=== PATIENT | male | born 1965 | race Caucasian/White ===

== ENCOUNTER 2017-09-16 09:46 | Emergency (ER) | payer OTHER ==
[2017-09-16 10:20] VITALS: BP 148/90
== END 2017-09-16 11:17 | disposition left against medical advice (07) ==
DX: Z53.21 Procedure and treatment not carried out due to patient leaving prior to being seen by health care provider (principal)

== ENCOUNTER 2017-12-21 10:24 | Emergency (ER) | payer OTHER ==
[2017-12-21 10:31] VITALS: BP 140/81
--- NOTE | 2017-12-21 11:12 | EDPHY ---
H & P Time Seen by Provider: 12/21/17 10:52 HPI/ROS: CHIEF COMPLAINT: Right arm injury HISTORY OF PRESENT ILLNESS: 52-year-old male presents to the emergency department with injury to his right arm. 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 Incident happened just prior to arrival. He is right-hand dominant. Complains of isolated pain to the right mid arm. ROS: Denies numbness or tingling in his fingers, feelings of weakness in his right upper extremity. Denies pain in the right wrist or elbow. Past Medical/Surgical History: Hypertension, diabetes Social History: Single, lives in [place] Smoking Status: Never smoked Physical Exam: On examination the patient has swelling noted to the right mid biceps especially when he flexes his right elbow and has range of motion against resistance. No palpable bony tenderness. He has mild pain with palpation over the antecubital fossa of the right elbow. No palpable bony tenderness. Normal sensation to light touch with normal 2 point discrimination. Strong radial pulse at the right wrist. 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 ED Course/Re-evaluation: 52-year-old male presents to the emergency department with right biceps pain. I was concerned that he had a possible biceps tendon rupture. He was placed in a sling and given orthopedic referral. - Depart Disposition: Home, Routine, Self-Care Clinical Impression: Rupture of right biceps tendon Qualifiers: Encounter type: initial encounter Qualified Code(s): S46.211A - Strain of muscle, fascia and tendon of other parts of biceps, right arm, initial encounter Condition: Fair Instructions: Tendon Rupture (ED) Additional Instructions: Sling for comfort and support. Ibuprofen 600mg every 8 hours for pain as directed. Follow up with orthopedic surgeon next week to recheck. Work Related Injury: Date of Injury (if different from Date of Service): 12/21/2017 Your work restrictions, if any, last only until the next business day. Formal evaluation for work restrictions beyond one day must be arranged through your employer's workman's compensation provider. Restrictions are noted below: Return to limited work on your next scheduled shift. Left hand work only Referrals: Antony Keys MD [Medical Doctor] - 2-3 days without fail (Orthopedic surgeon on-call) Work Comp Ref/Restrictions [Outside] - As per Instructions
== END 2017-12-21 11:25 | disposition home or self-care (01) ==
DX: S46.211A Strain of muscle, fascia and tendon of other parts of biceps, right arm, initial encounter (principal); I10 Essential (primary) hypertension; E11.9 Type 2 diabetes mellitus without complications; Z79.4 Long term (current) use of insulin; X50.9XXA Other and unspecified overexertion or strenuous movements or postures, initial encounter; Y99.0 Civilian activity done for income or pay; Y93.89 Activity, other specified
CPT/HCPCS: A4565

== ENCOUNTER 2018-06-18 09:21 | Observation (INO) | payer OTHER ==
--- NOTE | 2018-06-18 09:27 | EDPHY ---
H & P Stated Complaint: chest heavyness/cough/n/v Time Seen by Provider: 06/18/18 09:27 HPI/ROS: HPI: This is a 53-year-old male who presents with Chief Complaint: Heavy chest", shortness of breath, nausea, vomiting Location: Chest Quality:"Heavy" Duration: Since April Signs and Symptoms: no fever, + nausea, + vomiting, no diarrhea, no urinary symptoms, + shortness of breath, no wheezing, + cough, no sore throat, no neck stiffness, no joint pain, no swollen glands, no ear pain, no rash Timing: Worse this morning prior to arrival Severity: Moderate Context: Patient has a history of hypertension, diabetes mellitus presents with sudden onset of nausea while brushing his teeth this morning. He then went [facility] and got a bagel and was sitting at the stoplight after picking up is breakfast when he began to feel nauseous and vomited x1 he reports that he has had a cough since April and his PCP is concerned that he may have congestive heart failure as he has lower extremity bilaterally edema worse at the end of the day for the last several weeks. He is scheduled to see Cardiology, Dr. Delarosa, this week. He is adopted and does not know his family history. Patient reports that he has his intermittent orthopnea and cough that is worse when lying flat. Patient reports he received his influenza vaccine this year. He denies any upper respiratory symptoms. Patient reports that his cough is nonproductive in nature. Denies fever. He currently complains of chest heaviness that is nonradiating in nature. He denies diaphoresis. He still complains of nausea. Modifying Factors: None Comment: ROS: A comprehensive 10 system review of systems is otherwise negative aside from elements mentioned in the history of present illness. MEDICAL/SURGICAL/SOCIAL HISTORY: Medical history: Hypertension, diabetes mellitus Surgical history: Denies Social history: Family history noncontributory. CONSTITUTIONAL: Mild distress, overweight, middle-aged white male, awake and alert, no obvious distress HEENT: Atraumatic and normocephalic, PERRL, EOMI. Nares patent; no rhinorrhea; no nasal mucosal edema. Tympanic membranes clear. Oropharynx clear, no exudate and moist pink mucosa. Airway patent. No lymphadenopathy. No meningismus. Cardiovascular: Normal S1/S2, regular rate, regular rhythm, without murmur rub or gallop. PULMONARY/CHEST: Symmetrical and nontender. Clear to auscultation bilaterally. Good air movement. No accessory muscle usage. ABDOMEN: Soft, nondistended, nontender, no rebound, no guarding, no peritoneal signs, no masses or organomegaly. No CVAT. EXTREMITIES: 2/2 pulses, strength 5/5, no deformities, no clubbing, no cyanosis or edema. NEUROLOGICAL: no focal neuro deficits. GCS 15. SKIN: Warm and dry, no erythema. no rash. Good capillary refill. Source: Patient Exam Limitations: No limitations - Personal History Current Tetanus Diphtheria and Acellular Pertussis (TDAP): Yes - Medical/Surgical History Hx Asthma: No Hx Chronic Respiratory Disease: No Hx Diabetes: Yes Hx Cardiac Disease: No Hx Renal Disease: No Hx Cirrhosis: No Hx Alcoholism: No Hx HIV/AIDS: No Hx Splenectomy or Spleen Trauma: No Other PMH: htn/diabetic - Social History Smoking Status: Never smoked Constitutional: Initial Vital Signs Temperature (C) 36.6 C 06/18/18 09:24 Heart Rate 93 06/18/18 09:24 Respiratory Rate 18 06/18/18 09:24 Blood Pressure 190/100 H 06/18/18 09:24 O2 Sat (%) 95 06/18/18 09:24 O2 Delivery Mode Room Air Allergies/Adverse Reactions: codeine Allergy (Verified 06/18/18 09:22) Home Medications: Medication Instructions Recorded Amlodipine Besylate 09/16/17 Humalog 09/16/17 Lisinopril-Hctz 10-12.5 mg Tab 09/16/17 Basaglar Kwikpen U-100 12/21/17 Adderall 10 MG (*) 06/18/18 Aspirin 81mg (*) 06/18/18 Atorvastatin Calcium [Lipitor 40 40 mg PO DAILY 06/18/18 mg (*)] Multivitamins [Multivitamin (*)] 1 each PO DAILY 06/18/18 Sertraline HCl [Zoloft 50mg (*)] 50 mg PO DAILY 06/18/18 Terbinafine HCl [LamISIL 250 MG 250 mg PO DAILY 06/18/18 (*)] Tessalon Pearles 06/18/18 metFORMIN SR [Glucophage XR 500 mg 1,000 mg PO BID 06/18/18 (*)] Medical Decision Making - Diagnostics EKG Interpretation: 12 lead EKG: Indication: Chest pain Rhythm: Normal sinus rhythm, rate of 89 beats per minute Mobile: Normal Intervals: Normal QRS: Normal ST segments: Nonspecific changes INTERPRETATION: No acute ischemic changes The 12 lead EKG was interpreted by myself and with attending. Imaging Results: Imaging Impressions Chest X-Ray 06/18/18 09:32 Impression: Mild hypoventilatory features with mild perihilar bronchitis, borderline-cardiac silhouette enlargement, and no focal infiltrate. ED Course/Re-evaluation: Vital signs reviewed and show elevated blood pressure upon arrival. Placed on property assessment monitor. 10 min later blood pressure 140/90 with a heart rate of 90 and telemetry shows normal sinus rhythm EKG, chest x-ray, IV access, laboratory studies ordered Patient given IV Zofran 4 mg and aspirin 0945: EKG my read shows normal sinus rhythm with a rate of 89 beats per minute with nonspecific ST changes but no acute ischemic changes. Reviewed with attending. 0946: HEART score= moderate risk I reviewed the share decision making instrument with the patient, including risk of MACE, and the patient (and family) that are in agreement with the chosen disposition. 0949: Notified by tech that troponin 0.01 1000: Chest x-ray my read shows no opacity, no pulmonary congestion, no effusion, + mild cardiomegaly 0110: Labs reviewed. No signs of leukocytosis/anemia/platelet dysfunction/MARIELA/ elevated LFTs/electrolyte imbalance/pancreatitis/ACS/CHF. ED decision to consult for admission for chest pain rule out due to moderate heart score, need for property assessment monitor and serial troponin. Spoke with Alyson who kindly agrees to admit patient under Dr. Almonte to PCU. This patient was seen under the supervision of my secondary supervising physician. I evaluated care for this patient with my attending. Discussed this patient with Dr. Devries who did see the patient. Differential Diagnosis: Chest pain including but not limited to myocardial ischemia, pulmonary embolus, chest wall pain, pleural inflammation and pulmonary infectious causes. - Data Points Laboratory Results: Laboratory Results 06/18/18 09:32 06/18/18 09:32 06/18/18 06/18/18 06/18/18 09:35 09:32 09:32 WBC RBC Hgb Hct MCV MCH MCHC RDW Plt Count MPV Neut % (Auto) Lymph % (Auto) Glenn % (Auto) Eos % (Auto) Baso % (Auto) Nucleat RBC Rel Count Absolute Neuts (auto) Absolute Lymphs (auto) Absolute Monos (auto) Absolute Eos (auto) Absolute Basos (auto) Absolute Nucleated RBC Immature Gran % Immature Gran # PT 12.9 SEC SEC (12.0-15.0) INR 0.95 (0.83-1.16) APTT 31.3 SEC SEC (23.0-38.0) Sodium 134 mEq/L L mEq/L (135-145) Potassium 4.2 mEq/L mEq/L (3.5-5.2) Chloride 98 mEq/L mEq/L (97-110) Carbon Dioxide 26 mEq/l mEq/l (22-31) Anion Gap 10 mEq/L mEq/L (6-14) BUN 15 mg/dL mg/dL (7-23) Creatinine 0.9 mg/dL mg/dL (0.7-1.3) Estimated GFR > 60 Glucose 136 mg/dL H mg/dL (70-100) Calcium 9.5 mg/dL mg/dL (8.5-10.4) Total Bilirubin 0.9 mg/dL mg/dL (0.1-1.4) Conjugated Bilirubin 0.4 mg/dL mg/dL (0.0-0.5) Unconjugated Bilirubin 0.5 mg/dL mg/dL (0.0-1.1) AST 33 IU/L IU/L (17-59) ALT 34 IU/L IU/L (21-72) Alkaline Phosphatase 90 IU/L IU/L (38-126) POC Troponin I 0.01 ng/mL ng/mL (0.00-0.08) NT-Pro-B Natriuret Pep 40 pg/mL pg/mL (0-125) Total Protein 7.7 g/dL g/dL (6.3-8.2) Albumin 4.3 g/dL g/dL (3.5-5.0) Lipase 48 IU/L IU/L (23-300) 06/18/18 09:32 WBC 8.76 10^3/uL 10^3/uL (3.80-9.50) RBC 4.97 10^6/uL 10^6/uL (4.40-6.38) Hgb 14.1 g/dL g/dL (13.7-17.5) Hct 41.6 % % (40.0-51.0) MCV 83.7 fL fL (81.5-99.8) MCH 28.4 pg pg (27.9-34.1) MCHC 33.9 g/dL g/dL (32.4-36.7) RDW 14.6 % % (11.5-15.2) Plt Count 287 10^3/uL 10^3/uL (150-400) MPV 8.5 fL L fL (8.7-11.7) Neut % (Auto) 67.7 % % (39.3-74.2) Lymph % (Auto) 17.0 % % (15.0-45.0) Glenn % (Auto) 13.2 % H % (4.5-13.0) Eos % (Auto) 1.1 % % (0.6-7.6) Baso % (Auto) 0.5 % % (0.3-1.7) Nucleat RBC Rel Count 0.0 % % (0.0-0.2) Absolute Neuts (auto) 5.93 10^3/uL 10^3/uL (1.70-6.50) Absolute Lymphs (auto) 1.49 10^3/uL 10^3/uL (1.00-3.00) Absolute Monos (auto) 1.16 10^3/uL H 10^3/uL (0.30-0.80) Absolute Eos (auto) 0.10 10^3/uL 10^3/uL (0.03-0.40) Absolute Basos (auto) 0.04 10^3/uL 10^3/uL (0.02-0.10) Absolute Nucleated RBC 0.00 10^3/uL 10^3/uL (0-0.01) Immature Gran % 0.5 % % (0.0-1.1) Immature Gran # 0.04 10^3/uL 10^3/uL (0.00-0.10) PT INR APTT Sodium Potassium Chloride Carbon Dioxide Anion Gap BUN Creatinine Estimated GFR Glucose Calcium Total Bilirubin Conjugated Bilirubin Unconjugated Bilirubin AST ALT Alkaline Phosphatase POC Troponin I NT-Pro-B Natriuret Pep Total Protein Albumin Lipase Point of Care Test Results: Chemistry 06/18/18 09:35 POC Troponin I 0.01 ng/mL ng/mL (0.00-0.08) Departure - Departure Disposition: [facility] Inpatient Acute Clinical Impression: Chest pain at rest Hypertension Qualifiers: Hypertension type: essential hypertension Qualified Code(s): I10 - Essential ( primary) hypertension Condition: Fair
[2018-06-18] MEDS ORDERED: ONDANSETRON 4 MG/2 ML VIAL IVP ONE (09:31)
[2018-06-18] MEDS ORDERED: ASPIRIN 81 MG CHEWABLE TAB PO ONE (09:31)
[2018-06-18 09:47] LABS: PLATELET COUNT 287 10^3/uL (150-400)
[2018-06-18 09:54] LABS: INR 0.95 (0.83-1.16); PROTIME(PATIENT) 12.9 SEC (12.0-15.0)
[2018-06-18] MEDS ORDERED: ONDANSETRON 4 MG/2 ML VIAL IVP PRN (12:55)
[2018-06-18] MEDS ORDERED: ALBUTEROL 3 ML DEYVIAL IH PRN (12:55)
[2018-06-18] MEDS ORDERED: LORazepam 0.5 MG TAB PO PRN (12:55)
[2018-06-18] MEDS ORDERED: PROMETHAZINE HCL 25 MG/ML INJ IVP PRN (12:55)
[2018-06-18] MEDS ORDERED: ACETAMINOPHEN 325 MG TAB PO PRN (12:55)
--- NOTE | 2018-06-18 13:05 | PDGENHP ---
History and Physical History and Physical: Chief complaint: Chest pain History of present illness: The pt is a 53yo M who p/w constant, nonradiating chest heaviness x 1 week. He has also had a cough since , which will not go away. His PCP in [place] wanted him to get a stress test because he was concerned for CHF. Pt has an appt for treadmill stress test this with [facility] - Dr. Delarosa. Pt has orthopnea. He had 2 episodes of nausea and vomiting this morning as he was driving. He called his PCP, who told him to come to ED for concern about atypical [place]. Pt has gotten 2 rounds of Medrol dose pack for cough as well as a Zpack. Pt does not exercise. He has not noticed if his symptoms are worse or better with jennifer activity. He has had swelling in legs daily for > 1 yr. He particularly notices akbar on his legs when he removes his socks at night. Pt thinks he might have had a coronary CT over a year ago which showed some CAD, but he is not sure. Past medical history: Hypertension, diabetes, ROSITA on CPAP. Past surgical history: b/l foot surgery - for bunions/hammertoes. Medications: please see med rec. Allergies: Codeine. Social history: No Family history: Noncontributory. Review of systems: 10 point review of systems was conducted and is negative except per HPI Physical exam: Vitals: Reviewed General: The patient is an obese male who is A&Ox3 and in no acute distress. HEENT: normocephalic, extraocular movements intact, conjunctivae clear. Nares and oral mucosa pink and moist. Neck: trachea midline, no visible masses, no external lesions. CV: +S1/S2, reg rate and rhythm. No murmurs/rubs/gallops. Resp: unlabored breathing, lungs clear to auscultation w/o rales, rhonchi, or wheezing. Abd: soft and nondistended, bowel sounds present. Nontender to palpation throughout. Musculoskeletal: Normal muscle tone/bulk. Normal strength. Neuro: cranial nerves II - XII grossly intact. Intact gross motor and sensory function. Psych: appropriate mood/affect. Skin: No rash or ecchymoses. : no suprapubic tenderness or CVA tenderness. Heme/lymph: No peripheral edema. Labs: WBC 8.76 hemoglobin 14.1 INR 0.95 D-dimer 0.28 sodium 134 creatinine 0.9 prominent I 0.01 proBNP 40 lipase 48. Other Data: Chest [id number] interpreted-chronic CHF, cardiomegaly, no acute cardiopulmonary. EKG - normal sinus rhythm, rate 90, LAE, QTc 450. Impression and plan: Acute CP Progressive dyspnea/orthopnea N/V Obesity -Rule out cardiac etiology of symptoms with the following: -Echo. -treadmill stress test. -trend trops. -prn morphine. -ASA, statin. Nitroglycerin prn. -Continue home meds. -VTE ppx - ambulatory. DNR, has living will. Observation status.
[2018-06-18] MEDS ORDERED: D50W 25 GM/50 ML SYR IVP PRN (14:47)
[2018-06-18] MEDS ORDERED: NITROGLYCERIN 0.4 MG BTL SL PRN (14:56)
[2018-06-18] MEDS: amLODIPine BESYLATE 5 MG TAB PO SCH (15:17)
[2018-06-18] MEDS: BENZONATATE 100 MG CAP PO PRN ×2 (16:42→22:00)
[2018-06-18] MEDS: INSULIN LISPRO 100 UNIT/ML SC SCH (19:42)
[2018-06-18] MEDS ORDERED: INSULIN GLARGINE 100 UNITS/ML UNIT SC SCH (21:00)
--- NOTE | 2018-06-18 21:23 | ECHO ---
[email or web address] [address] [address] Main: [phone] Fax: Transthoracic Echocardiogram Name: LEONARD ROYAL MR#: [id number] Study Date: 06/18/2018 Study Time: 02:53 PM Date of : 1965 Age: 53 year(s) Height: 182.9 cm (72 in.) Weight: 126.55 kg (279 lb.) BSA: 2.45 m2 Gender: Male Examination: Echo Indication: CP, Edema, Orthopnea Image Quality: Contrast: Requested by: Yue Almonte BP: 151 mmHg/86 mmHg Heart Rate: Rhythm: Normal sinus rhythm Indication: CP, Edema, Orthopnea Procedure Staff Copy Writer: Ford So RDCS Reading Physician: Meredith Aldana MD Requesting Provider: Conclusions: Normal size left ventricle. Mild concentric LV hypertrophy. Normal global systolic LV function. EF is 62 %. No regional wall motion abnormality. Grade 1 diastolic dysfunction (abnormal relaxation). Normal size right ventricle. Normal RV function. Trivial tricuspid valve regurgitation. The pulmonary artery pressure is normal. No pericardial effusion. There is no previous echocardiogram for comparison. Measurements: Chambers Valvular Assessment AV/MV Valvular Assessment TV/PV Normal Normal Normal Name Value Range Name Value Range Name Value Range Ao Meg (MM): 3.3 cm (2.2 cm-3.7 AV Vmax: 1.29 m/s (1 m/s-1.7 TR Vmax: 1.56 mm/s ( - ) cm) m/s) TR PGmax: 10 mmHg ( - ) IVSd (2D): 1.3 cm (0.6 cm-1.1 AV maxP mmHg ( - ) syst. PAP: 15 mmHg ( - ) cm) LVOT Vmax: 1.07 m/s (0.7 m/s-1.1 PV Vmax: 1.33 m/s (0.6 m/s-0.9 LVDd (2D): 4.1 cm (4.2 cm-5.9 m/s) m/s) cm) MV E Vmax: 0.85 m/s ( - ) PV PGmax: 7 mmHg ( - ) LVDs (2D): 2.8 cm (2.1 cm-4 MV A Vmax: 0.94 m/s ( - ) cm) MV E/A: 0.90 ( - ) LVPWd (2D): 1.2 cm (0.6 cm-1 cm) LVEF (2D): 62 (>=54 %) Continued Measurements: Patient: LEONARD ROYAL Study Date: 06/18/2018 Page 1 of 2 02:53 PM Chambers Valvular Assessment AV/MV Valvular Assessment TV/PV Name Value Name Value Name Value LADs Lon.6 cm MV E' Septal: 0.05 m/s CVP (est.): 5 mmHg LA Area: 20.6 cm2 MV E/E' Septal: 15.90 LA Volume: 51 ml MV E/E' Lateral: 11.70 LA Volume Index: 20.8 ml/m2 Findings: Left Ventricle: Normal size left ventricle. Mild concentric LV hypertrophy. Normal global systolic LV function. EF is 62 %. No regional wall motion abnormality. Grade 1 diastolic dysfunction (abnormal relaxation). Right Ventricle: Normal size right ventricle. Normal RV function. Left Atrium: The left atrium is normal in size. Right Atrium: The right atrium is normal in size. Mitral Valve: There is no mitral valve regurgitation. There is mild, focal posterior mitral valve leaflet calcification.. Aortic Valve: The aortic valve is tri-leaflet. The aortic valve is normal in appearance and function. Tricuspid Valve: The tricuspid valve is normal in appearance and function. Trivial tricuspid valve regurgitation. The pulmonary artery pressure is normal. Pulmonic Valve: The pulmonic valve is normal in appearance and function. There is no pulmonic regurgitation seen. Aorta: The aorta is normal. Pericardium: No pericardial effusion. (No Signature Object) Patient: LEONARD ROYAL Study Date: 06/18/2018 Page 2 of 2 02:53 PM [id number]
[2018-06-18] MEDS: metFORMIN SR 500 MG TAB PO SCH (22:00)
[2018-06-19 05:07] LABS: PLATELET COUNT 288 10^3/uL (150-400)
[2018-06-19] MEDS: BENZONATATE 100 MG CAP PO PRN (08:35)
[2018-06-19] MEDS ORDERED: LOSARTAN/HCTZ 50/12.5 1 TAB PO SCH (09:00)
[2018-06-19] MEDS ORDERED: ATORVASTATIN CALCIUM 40 MG TAB PO SCH (09:00)
[2018-06-19] MEDS ORDERED: ASPIRIN 81 MG CHEWABLE TAB PO SCH (09:00)
[2018-06-19] MEDS ORDERED: MULTIVITAMINS 1 EACH TAB PO SCH (09:00)
[2018-06-19] MEDS ORDERED: REGADENOSON 0.4 MG/5 ML SYR IVP ONE (09:51)
--- NOTE | 2018-06-19 10:36 | PDCARST ---
CAR Stress Test Results Type of Stress Test: Lexiscan stress test Indication: cp Description of Procedure: After informed consent was obtained, pt was established to ECG, blood pressure, HR and oximetry monitoring. STRESS EKG AND HEMODYNAMIC DATA. Resting heart rate: 83 BPM. Resting ECG: SR. Resting blood pressure: 140/94 mmHg. O2 saturation at rest: 98%. Peak heart rate: 132 BPM. Peak blood pressure: 204/100 mmHg. Arrhythmias: occasional PAC and PVC in recovery. Symptoms: The patient experienced no typical symptoms of angina during stress or recovery. . Stress/Infusion ECG: No change in rhythm with no significant ST/T wave changes. Stress/infusion O2 saturation: 91% Impression: Patient attempted the Kwan protocol but could only achieve 80% of MPHR. No ischemic changes and no cp with exertion. Hypertensive response to exercise. Pt was converted to Lexiscan. Conclusion: Unable to achieve 80% of MPHR due to fatigue Uneventful Lexiscan infusion.
[2018-06-19] MEDS: amLODIPine BESYLATE 5 MG TAB PO SCH (11:56)
[2018-06-19 11:59] VITALS: BP 129/99
[2018-06-19] MEDS: metFORMIN SR 500 MG TAB PO SCH (11:59)
[2018-06-19] MEDS: INSULIN LISPRO 100 UNIT/ML SC SCH ×2 (12:07)
--- NOTE | 2018-06-19 13:24 | HOSPPROG ---
Hospitalist Progress Note Assessment/Plan: 3 yo M w chest sx neg eval see dc summary Subjective: neg stress. no events on tele Objective: Vital Signs Temp Pulse Resp BP Pulse Ox 36.6 C 92 14 129/99 H 93 06/19/18 08:00 06/19/18 11:57 06/19/18 11:57 06/19/18 11:57 06/19/18 11:57 Laboratory Results 06/19/18 03:40 06/19/18 03:40 06/18/18 06/19/18 06/20/18 05:59 05:59 05:59 Intake Total 1550 Balance 1550 PT 12.9 SEC (12.0-15.0) 06/18/18 09:32 INR 0.95 (0.83-1.16) 06/18/18 09:32 - Physical Exam Constitutional: no apparent distress, appears nourished Eyes: PERRL, anicteric sclera Ears, Nose, Mouth, Throat: moist mucous membranes, hearing normal Cardiovascular: regular rate and rhythym, no murmur, rub, or gallop Respiratory: no respiratory distress, no rales or rhonchi Gastrointestinal: normoactive bowel sounds, soft, non-tender abdomen Genitourinary: No verma in urethra Skin: warm, normal color Musculoskeletal: full muscle strength Neurologic: AAOx3 ICD10 Worksheet Patient Problems: Problems Problem Status Onset Chest pain at rest Acute Hypertension Acute Rupture of right biceps tendon Acute
--- NOTE | 2018-06-19 14:16 | ASDISCHSUM ---
Discharge Information Plan Status:Home with No Needs Medically Cleared to Leave:06/18/2018 Discharge Date:06/19/2018 02:08 PM CM D/C Disposition:Home, Routine, Self-Care ADT D/C Disposition:Home, Routine, Self-Care Projected Discharge Date:06/19/2018 02:08 PM Transportation at D/C: Discharge Delay Reason: Follow-Up Date:06/19/2018 02:08 PM Discharge Slot: Final Diagnosis: Placement Information Patient Contact Information Contact Name:ALLISON Relationship:Friend Address: City: [facility] Phone: [facility] Code: Email: Financial Information Financial Class:HMO and PPO Plans Primary Plan Desc:[employer] Primary Plan Number:[id number] Secondary Plan Desc: Secondary Plan Number: Assessment Information LACE LACE Length of stay for Answers: Less than 1 day current admission Acuity / Level of Answers: No Care: Did the patient have an inpatient admission? Comorbidities - select Answers: Diabetes (uncontrolled or all that apply controlled) Other Notes: HTN # of Emergency department Answers: 1-2 visits in the last 6 months Score: 3 Date Signed: 06/19/2018 02:15 PM Electronically Signed By:Yari Marinelli RN Intervention Information
--- NOTE | 2018-06-19 15:39 | GDS ---
DISCHARGE DIAGNOSES: 1. Chest pain. 2. Diabetes. 3. Hypertension. 4. Sleep apnea. Please see admission history and physical by Dr. Yue Almonte. The patient presented with chest pain , chest symptoms, as well as some vomiting. He had a chest x-ray that showed no focal infiltrate. H e had a nonischemic EKG, he had an echocardiogram that was largely normal, and a stress test demonstr ating somewhat poor exercise tolerance, but when it was converted to Lexiscan, he had no focal wall m otion abnormalities and no evidence of ischemia on EKG. He was not anemic. I do not have a white co unt. His D-dimer was negative, ruling out PE. He had serial negative troponins and no events on tel emetry. Regarding his cough, I think this is a postviral thing and it will resolve in time. I recommended no further specific treatment for this. His BNP was 40. No new medications. /[id number]
== END 2018-06-19 14:08 | disposition home or self-care (01) ==
LOC: F2W 10:41
PROVIDERS: ADMIT Internal Medicine; ATTEND Internal Medicine
DX: R07.89 Other chest pain (principal); R06.00 Dyspnea, unspecified; R11.2 Nausea with vomiting, unspecified; E11.9 Type 2 diabetes mellitus without complications; Z79.4 Long term (current) use of insulin; Z79.84 Long term (current) use of oral hypoglycemic drugs; I10 Essential (primary) hypertension; G47.33 Obstructive sleep apnea (adult) (pediatric); E66.09 Other obesity due to excess calories
CPT/HCPCS: 71046; 78452; 93017; 93306; 96372; 96374; 99285; A9500; G0378; 84484-ER; J1815; J2405; J2785

== ENCOUNTER → 2018-09-26 | Outpatient (CLI) | payer OTHER ==
[~2018-09-26] MED LIST: GADOBUTROL 10 ML VIAL IVP ONE
== END ==
LOC: FIMAGING 08:53
PROVIDERS: ATTEND Internal Medicine Infectious Disease
DX: L03.032 Cellulitis of left toe (principal); M19.072 Primary osteoarthritis, left ankle and foot; E11.621 Type 2 diabetes mellitus with foot ulcer
CPT/HCPCS: A9585

== ENCOUNTER → 2018-11-07 | Outpatient (CLI) | payer OTHER | LOC: BRMIMAGING 10:35 ==